=== PATIENT | female | born 1965 | race Two or more races ===

== ENCOUNTER 2023-04-25 16:03 | Emergency (ER) | payer OTHER ==
[~2023-04-25] VITALS: Ht 172.7 cm; Wt 92.7 kg
[2023-04-25 16:15] VITALS: BP 157/93; PULSE 90; RESP 18; TEMP 97.3; O2SAT 95
[2023-04-25] MEDS: TETRACAINE HCL 0.5% OPTH(EYE) SOLN 4ML LEFTEYE ONE (19:00)
[2023-04-25] MEDS: FLUORESCEIN SOD OPTH TEST STRIP LEFTEYE ONE (19:29)
[2023-04-25] MEDS ORDERED: GENT0.3S10 EACHEYE (22:56)
[2023-04-25] MEDS ORDERED: HYDR-4902 PO (22:56)
[2023-04-25] MEDS: ERYTHROMY OPTH OINT 5mg/gm 1gm or 3.5gm tube OP ONE (23:57)
[2023-04-25] MEDS: HYDROcodone-ACET 5/325MG TAB PO ONE (23:57)
[2023-04-25] MEDS: TETANUS-DIPTH-ACEL PERTUSSIS 0.5ML SYR Tdap IM ONE (23:57)
== END 2023-04-26 00:06 | disposition home or self-care (01) ==
LOC: ER 16:03
DX: S05.12XA Contusion of eyeball and orbital tissues, left eye, initial encounter (principal); S05.02XA Injury of conjunctiva and corneal abrasion without foreign body, left eye, initial encounter; I10 Essential (primary) hypertension; Z79.899 Other long term (current) drug therapy; Y04.2XXA Assault by strike against or bumped into by another person, initial encounter; Y93.89 Activity, other specified; Y92.89 Other specified places as the place of occurrence of the external cause; Y99.8 Other external cause status
CPT/HCPCS: 70450; 70486; 90471; 90715

== ENCOUNTER 2024-11-26 11:24 | Inpatient (IN) | payer MEDICAID, OTHER ==
[~2024-11-26] VITALS: Ht 170.2 cm; Wt 94.8 kg
[~2024-11-26 11:24] MED LIST: GENT0.3S10 EACHEYE; HYDR-4902 PO
--- NOTE | 2024-11-26 14:36 | ED.PDOC ---
Musculoskeletal HPI Comments Cindy Kennedy Is a 59-year-old female, with past medical history of pre- diabetes and hypertension. The patient came to the ED with chief complain of 2 months of right leg swelling and pain, intermittent, 5/10, associated with erythema and warmth that was localized around her ankle. Three days ago, the edema and erythema progressed to her knee, associated with subjective fever and chills. Today, her pain increase to 8/10, continues, and the erythema continues expanding, this prompted her visit to the ED. The patient denies any recent trauma on the right leg, discharge, wounds, nausea, vomit or other symptoms. The patient will be admitted for further assessment and management. Chief Complaint: Lower Extremity Time Seen by MD: 12:32 Primary Care Provider: NONE Reviewed Notes: Nurses Notes, Medications, Allergies Allergies: Coded Allergies: NO KNOWN ALLERGIES (Unverified , 04/25/23) Home Meds Active Scripts Hydrocodone-Acetaminophen (Hydrocodone Bitartrate/AC 5-325 mg) 1 Tab Tab, 1 TAB PO Q6HPRN PRN, #10 TAB as needed for pain Prov:KACEY HOFF STATION OPERATOR 04/25/23 Gentamicin Sulfate (Gentamicin Sulfate) 0.3 % Latisha, 2 DROP EACHEYE QID for 10 Days, #15 ML Prov:KACEY HOFF STATION OPERATOR 04/25/23 Information Source: Patient Mode of Arrival: Ambulatory Location: Right Timing: Days Severity: Moderate Able to Move Extremity: Yes Bear Weight: Fully Past Medical History PAST MEDICAL HISTORY: HTN Past Medical History (Other): Pre-Diabetes Surgical History: Hysterectomy, Tonsillectomy SILICA MIXER OPERATOR History: Denies all SILICA MIXER OPERATOR Hx Family History Family History: Reviewed,noncontributory to illness Social History Smoker: Non-Smoker Alcohol: Denies ETOH Use Drugs: Denies Drug Use Lives In: Home Constitutional: reports: chills, fever; denies: diaphoresis, fatigue, malaise, sweats, weakness, others EENTM: denies: blurred vision, double vision, ear bleeding, ear discharge, ear drainage, ear pain, ear ringing, eye pain, eye redness, hearing loss, mouth pain, mouth swelling, nasal discharge, nose bleeding, nose congestion, nose pain, photophobia, tearing, throat pain, throat swelling, voice changes, others Respiratory: denies: cough, hemoptysis, orthopnea, SOB at rest, shortness of breath, SOB with excertion, stridor, wheezing, others Cardiovascular: denies: chest pain, dizzy spells, diaphoresis, Dyspnea on exertion, edema, irregular heart beat, left arm pain, lightheadedness, palpitations, PND, syncope, others Gastrointestinal: denies: abdomen distended, abdominal pain, blood streaked bowels, constipated, diarrhea, dysphagia, difficulty swallowing, hematemesis, m caty, nausea, poor appetite, poor fluid intake, rectal bleeding, rectal pain, vomiting, others Genitourinary: denies: abnormal vagina bleeding, burning, dyspareunia, dysuria, flank pain, frequency, hematuria, incontinence, pain, , vagina discharge, urgency, others Neurological: denies: dizziness, fainting, headache, left sided numbness, left sided weakness, numbness, paresthesia, pre-existing deficit, right sided numbness, right sided weakness, seizure, speech problems, tingling, tremors, weakness, others Musculoskeletal: reports: others (Rigth leg edema); denies: back pain, gout, joint pain, joint swelling, muscle pain, muscle stiffness, neck pain Integumetry: denies: bruises, change in color, change in hair/nails, dryness, laceration, lesions, lumps, rash, wounds, others Allergic/Immunocompromised: denies: Difficulty Healing, Frequent Infections, Hives, Itching, others Hematologic/Lymphatic: denies: anemia, blood clots, easy bleeding, easy bruising, swollen glands, others Endocrine: denies: excessive hunger, excessive sweating, excessive thirst, excessive urination, flushing, intolerance to cold, intolerance to heat, unexplained weight gain, unexplained weight loss, others Psychiatric: denies: anxiety, bipolar disorder, depression, hopeless, panic disorder, schizophrenia, sleepless, suicidal, others Physical Exam Exam Comments Alert, oriented x3 General Appearance: No Apparent Distress, Normal HEENT: Normal ENT Inspection, Pharynx Normal, TMs Normal Neck: Full Range of Motion, Non-Tender, Normal, Normal Inspection Respiratory: Chest Non-Tender, Lungs Clear, No Accessory Muscle Use, No Respiratory Distress, Normal Breath Sounds Cardiovascular: No Edema, No JVD, No Murmur, No Gallop, Normal Peripheral Pulses, Regular Rate/Rhythm Breast Exam: Deferred Gastrointestinal: No Organomegaly, Non Tender, No Pulsatile Mass, Normal Bowel Sounds, Soft Genitalia: Deferred Pelvic: Deferred Rectal: Deferred Extremities: Normal capillary refill, Tender (Right leg: inspection: erytema and swelling from the ankle up to the knee. The leg is warmth to the touch, tenderness to the light touch. ROM full, sensitivity and strength preserved.) Musculoskeletal : Apperance: Normal Neurologic: Alert, tablet repair II-XII nml as Tested, No Motor Deficits, Normal Affect, Normal Mood, No Sensory Deficits Cerebellar Function: Normal Reflexes: Normal Skin: Dry, Normal Color, Warm Lymphatic: No Adenopathy Was a procedure done? Was a procedure done?: No Differential Diagnosis EXT Differential Diagnosis: Cellulitis, Deep Vein Thrombosis Other Differential Diagnosis Necrotizing fasciitis X-Ray, Labs, Meds, VS Vital Signs Date Time Temp Pulse Resp B/P (MAP) Pulse Ox O2 Delivery O2 Flow Rate FiO2 11/26/24 16:03 72 18 98 Room Air 11/26/24 16:03 97.8 76 18 162/84 (110) 97 97.8 11/26/24 11:30 98.1 98 17 157/80 97 98.1 Lab Test 11/26/24 14:44 Range/Units White Blood Count 4.2 L 4.4-10.8 10^3/uL Red Blood Count 4.70 4.0-5.20 10^6/uL Hemoglobin 13.2 12.2-16.2 g/dL Hematocrit 40.1 36.0-46.0 % Mean Corpuscular Volume 85.3 80.0-100.0 fL Mean Corpuscular Hemoglobin 28.2 28.0-32.0 pg Mean Corpuscular Hemoglobin Concent 33.0 32.0-36.0 g/dL Red Cell Distribution Width 13.7 11.8-14.3 % Platelet Count 200 140-450 10^3/uL Mean Platelet Volume 9.2 6.9-10.8 fL Neutrophils (%) (Auto) 53.8 37.0-80.0 % Lymphocytes (%) (Auto) 28.9 10.0-50.0 % Monocytes (%) (Auto) 11.4 0.0-12.0 % Eosinophils (%) (Auto) 5.0 0.0-7.0 % Basophils (%) (Auto) 0.9 0.0-2.0 % Neutrophils # (Auto) 2.3 1.6-8.6 10 ^3/uL Lymphocytes # (Auto) 1.2 0.4-5.4 10 ^3/uL Monocytes # (Auto) 0.5 0-1.3 10 ^3/uL Eosinophils # (Auto) 0.2 0-0.8 10 ^3/uL Basophils # (Auto) 0 0-0.2 10 ^3/uL Nucleated Red Blood Cells 0.3 % Erythrocyte Sedimentation Rate 14 0-20 mm/hr Sodium Level 144 136-145 mmol/L Potassium Level 3.9 3.5-5.1 mmol/L Chloride Level 108 H 98-107 mmol/L Carbon Dioxide Level 26 20-31 mmol/L Anion Gap 10 5-15 Blood Urea Nitrogen 15 9-23 mg/dL Creatinine 0.78 0.550-1.02 mg/dL Glomerular Filtration Rate Calc 88 >90 mL/min BUN/Creatinine Ratio 19.2 10.0-20.0 Serum Glucose 97 74-106 mg/dL Calcium Level 9.1 8.7-10.4 mg/dL C-Reactive Protein High Sensitivity 1.86 H <1.0 mg/dL Current Medications Medications (Trade) Dose Ordered Sig/Gurpreet Route Start Time Stop Time Status Last Admin Ceftriaxone Sodium 50 ml @ 100 mls/hr ONCE ONCE IV 11/26/24 14:15 11/26/24 14:44 DC 11/26/24 16:40 Vancomycin HCl 250 ml @ 250 mls/hr ONCE ONCE IV 11/26/24 14:15 11/26/24 15:14 DC 11/26/24 16:40 Acetaminophen/ Hydrocodone Bitart ([place] 5/325MG Tab) 1 tab ONCE ONCE PO 11/26/24 14:15 11/26/24 14:19 DC 11/26/24 16:39 : 59-year-old female presents here with cellulitis. At this time patient has been seen by myself personally along with the resident. CBC BMP has been ordered which are unremarkable. CRP is elevated. At this time considered possible necrotizing fasciitis. Cellulitis DVT. Ultrasound with no evidence of DVT. At this time however given her extensive cellulitis, hospital ist team has been contacted. Patient has been started on Rocephin and vancomycin. X-Ray, Labs, Meds, VS Comment The patient was reassessed. Pain has improved with pain medication The patient will be admitted for further assessment and management Blood cultures have been requested and antibiotics started. Time of 1ST Reevaluation: 14:40 Reevaluation 1ST: Unchanged Patient Education/Counseling: Diagnosis, Treatment, Prognosis, Need For Follow Up Family Education/Counseling: No Family Present Departure 1 Departure Time of Disposition: 14:40 Impression: Primary Impression: Cellulitis Qualified Codes: L03.119 - Cellulitis of unspecified part of limb Disposition: 09 ADMITTED INPATIENT Admit to: Med Surg Condition: Good Comments Goals of care discussed with the patient > 35 min. Discussed plan of care with Dr. Collins Code status: Full code PCP: Plan discussed with: Patient, the patient agrees with admission the plan. Critical Care Note Critical Care Time?: No Stability Stability form required: No Heart Score Heart Score: Heart Score Response (Comments) Value History N/A 0 EKG N/A 0 Age N/A 0 Risk Factors N/A 0 Troponin N/A 0 Total 0 NELI TREJO RESIDENT Nov 26, 2024 14:36 JENNIFER COLLINS MD Nov 26, 2024 18:01
--- NOTE | 2024-11-26 14:58 | DVH ---
EXAM: CT CT R TIB FIB WO CONTRAST INDICATION: LEG PAIN; CELLULITIS TECHNIQUE: Axial images of right tibia/fibula without contrast have been obtained along with coronal and sagittal reformatted images. All CT scans at this facility use dose modulation, iterative reconst ruction, and/or weight based dosing when appropriate to reduce radiation dose to as low as reasonably achievable. COMPARISON: None FINDINGS: BONES: No CT evidence of an acute fracture or aggressive osseous lesion. No abnormal osseous erosion, lucency, sclerosis to suggest osteomyelitis. MUSCLES: No abnormal attenuation. JOINT SPACES: No joint effusion. TENDONS/LIGAMENTS: Intact. OTHER: Subcutaneous adipose tissue edema of the anterior aspect of the calf without drainable fluid c ollection with the associated skin thickening. Imaging finding may be compatible with cellulitis /fa sciitis. No definitive drainable fluid collection based on CT noncontrast examination. IMPRESSION: 1. Subcutaneous adipose tissue edema of the anterior aspect of the calf without drainable fluid colle ction with the associated skin thickening. 2. Imaging finding may be compatible with cellulitis /fasciitis. 3. No definitive drainable fluid collection based on CT noncontrast examination. 4. No CT evidence of an acute fracture or aggressive osseous lesion. No abnormal osseous erosion, nico ency, sclerosis to suggest osteomyelitis.
[2024-11-26 15:07] LABS: Hematocrit 40.1 % (36.0-46.0); Hemoglobin 13.2 g/dL (12.2-16.2); Mean Corpuscular Hemoglobin 28.2 pg (28.0-32.0); Mean Corpuscular Volume 85.3 fL (80.0-100.0); Nucleated Red Blood Cells % 0.3 %
[2024-11-26 15:13] LABS: Potassium 3.9 mmol/L (3.5-5.1); Sodium 144 mmol/L (136-145)
[2024-11-26 15:14] LABS: Anion Gap 10 (5-15); Calcium 9.1 mg/dL (8.7-10.4); Carbon Dioxide 26 mmol/L (20-31)
--- NOTE | 2024-11-26 15:15 | DVH ---
CLINICAL HISTORY: Leg pain and swelling TECHNIQUE: Color and duplex doppler imagine of the bilateral lower extremity veins was performed. Ves cierra compression and augmentation if possible was also performed. COMPARISON: None FINDINGS: Right Lower Extremity: Right common femoral vein: Normal compressibility and flow. Right superficial femoral vein: Normal compressibility and flow. Right popliteal vein: Normal compressibility and flow. Proximal calf veins demonstrate flow. Left Lower Extremity: Left common femoral vein: Normal compressibility and flow. Left superficial femoral vein: Normal compressibility and flow. Left popliteal vein: Normal compressibility and flow. Proximal calf veins demonstrate flow. IMPRESSION: NO SONOGRAPHIC EVIDENCE FOR DEEP VENOUS THROMBOSIS IN THE BILATERAL LOWER EXTREMITY VEINS.
[2024-11-26 15:19] LABS: Glucose 97 mg/dL (74-106)
[2024-11-26 15:21] LABS: Chloride 108 mmol/L (98-107)
[2024-11-26 15:33] LABS: BUN/Creatinine Ratio 19.2 (10.0-20.0); Blood Urea Nitrogen 15 mg/dL (9-23)
[2024-11-26] MEDS: HYDROcodone-ACET 5/325MG TAB PO ONE (16:39)
[2024-11-26] MEDS: VANCOMYCIN 1GM/250ML KIT 250 ML IV ONE (16:40)
--- NOTE | 2024-11-26 17:36 | DVHHPRES ---
History of Present Illness Resident Creating Document: CARLOS MANUEL JAFFE History of Present Illness Patient is a 59-year-old male with past medical history of pre-diabetes and hypertension, presented to [facility] ED with complaint of right leg swelling and pain. The pain initially began approximately one month ago, localized to the right ankle, described as intermittent, rated 5/10, and associated with erythema and warmth. Over the past three days, the redness progressed proximally to the right knee, accompanied by constant stabbing pain rated 7/10. Patient denies any history of insect bite, trauma, wound, or discharge from the affected area. Initial labs shows elevated blood pressure 1 62/[address] shows subcutaneous adipose tissue edema of the anterior aspect of the calf without drainable fluid collection with the associated skin thickening. Extremity Venous Study shows no sonographic evidence for deep vein thrombosis in the bilateral lower extremity veins. Past Medical History Pre-diabetes, hypertension Past Surgical History: None Family History: None Smoke: No ALCOHOL: none Drugs: None Lives: with Family Review of Systems Musculoskeletal: leg pain, foot pain Skin: Rash Allergies: Coded Allergies: NO KNOWN ALLERGIES (Unverified , 04/25/23) Exam Vital Signs Vital Signs Date Time Temp Pulse Resp B/P (MAP) Pulse Ox O2 Delivery O2 Flow Rate FiO2 11/26/24 16:03 72 18 98 Room Air 11/26/24 16:03 97.8 162/84 (110) 97.8 Exam General Appearance: Cooperative. Well developed. Well nourished. NAD Head Exam: Normal inspection Neck Exam: Normal inspection. Non-tender. Normal alignment Pulmonary/Respiratory: Chest non-tender. Clear bilateral breath sounds, no crackles, no wheezing. Cardiovascular/Chest: Regular rate and rhythm. No murmurs. No JVD. Peripheral Pulses: 2+ Radial (R). 2+ Radial (L). 2+ Pedal (R). 2+ Pedal (L) Abdominal Exam: Normal bowel sounds. Soft. normal abdomen, no visible veins, Nontender. No hepatospenomegaly. No masses Ankle Exam: Negative ankle edema Lower extremities: Normal capillary refill, Right leg: inspection: erythema and swelling from the ankle up to the knee. The leg is warmth to the touch, tenderness to the light touch. ROM full, sensitivity and strength preserved. Neuro/Mental Status: A&O x4. Coherent. Thoughts/Psych: Normal thought pattern. Appropriate mood and affect. Good judgement and insight Skin Exam: Normal inspection. Normal color. Warm. Dry Labs/Xrays Labs Test 11/26/24 14:44 Range/Units White Blood Count 4.2 L 4.4-10.8 10^3/uL Red Blood Count 4.70 4.0-5.20 10^6/uL Hemoglobin 13.2 12.2-16.2 g/dL Hematocrit 40.1 36.0-46.0 % Mean Corpuscular Volume 85.3 80.0-100.0 fL Mean Corpuscular Hemoglobin 28.2 28.0-32.0 pg Mean Corpuscular Hemoglobin Concent 33.0 32.0-36.0 g/dL Red Cell Distribution Width 13.7 11.8-14.3 % Platelet Count 200 140-450 10^3/uL Mean Platelet Volume 9.2 6.9-10.8 fL Neutrophils (%) (Auto) 53.8 37.0-80.0 % Lymphocytes (%) (Auto) 28.9 10.0-50.0 % Monocytes (%) (Auto) 11.4 0.0-12.0 % Eosinophils (%) (Auto) 5.0 0.0-7.0 % Basophils (%) (Auto) 0.9 0.0-2.0 % Neutrophils # (Auto) 2.3 1.6-8.6 10 ^3/uL Lymphocytes # (Auto) 1.2 0.4-5.4 10 ^3/uL Monocytes # (Auto) 0.5 0-1.3 10 ^3/uL Eosinophils # (Auto) 0.2 0-0.8 10 ^3/uL Basophils # (Auto) 0 0-0.2 10 ^3/uL Nucleated Red Blood Cells 0.3 % Erythrocyte Sedimentation Rate 14 0-20 mm/hr Sodium Level 144 136-145 mmol/L Potassium Level 3.9 3.5-5.1 mmol/L Chloride Level 108 H 98-107 mmol/L Carbon Dioxide Level 26 20-31 mmol/L Anion Gap 10 5-15 Blood Urea Nitrogen 15 9-23 mg/dL Creatinine 0.78 0.550-1.02 mg/dL Glomerular Filtration Rate Calc 88 >90 mL/min BUN/Creatinine Ratio 19.2 10.0-20.0 Serum Glucose 97 74-106 mg/dL Calcium Level 9.1 8.7-10.4 mg/dL C-Reactive Protein High Sensitivity 1.86 H <1.0 mg/dL SEPSIS Sepsis Screen Date sepsis recognized/suspect: Nov 26, 2024 Time Sepsis recognized/suspect: 1133 Recent Procedure: No On Antibiotic Therapy: No Respiratory Rate >20: No Heart Rate >90: No Temp<36 C (96.8 F) or >38.3 C: No SBP <90 or MAP <65 mmHG: No New Acute Mental Status Change: No Is the patient on CPAP, BIPAP,: No Physician Orders Bilat Lower Dvt (11/26/24 14:14) Blood Culture (11/26/24 14:14) Urinalysis (11/26/24 14:14) Ct R Tib Fib Wo Contrast (11/26/24 14:21) Vital Signs Date Time Temp Pulse Resp B/P (MAP) Pulse Ox O2 Delivery O2 Flow Rate FiO2 11/26/24 16:03 72 18 98 Room Air 11/26/24 16:03 97.8 76 18 162/84 (110) 97 97.8 11/26/24 11:30 98.1 98 17 157/80 97 98.1 Laboratory Tests Test 11/26/24 14:44 White Blood Count 4.2 10^3/uL (4.4-10.8) L Medications Medications Dose Ordered Sig/Gurpreet Route Start Time Stop Time Status Last Admin Dose Admin Acetaminophen/ Hydrocodone Bitart 1 tab ONCE ONCE PO 11/26/24 14:15 11/26/24 14:19 DC 11/26/24 16:39 1 TAB Ceftriaxone Sodium 50 ml @ 100 mls/hr ONCE ONCE IV 11/26/24 14:15 11/26/24 14:44 DC 11/26/24 16:40 100 MLS/HR Vancomycin HCl 250 ml @ 250 mls/hr ONCE ONCE IV 11/26/24 14:15 11/26/24 15:14 DC 11/26/24 16:40 250 MLS/HR Assessment/Plan Assessment/Plan # Cellulitis - Lower Extremity CT shows subcutaneous adipose tissue edema of the anterior aspect of the calf without drainable fluid collection with the associated skin thickening. Imaging finding may be compatible with cellulitis /fasciitis. - Cefazolin - NS - Vancomycin IV - Tylenol 650 mg PO - [place] - Morphine 2 mg - Zofran # Ruled out DVT - Extremity Venous Study shows no sonographic evidence for deep vein thrombosis in the bilateral lower extremity veins. # Essential Hypertension - Losartan 25 mg Goals of care: Full code, discussed for >30 minutes on 11/26/24 Plan discussed with patient Plan discussed with Dr. Toribio Plan discussed with: Patient Date of Service: Nov 26, 2024 Billing Provider: JR TORIBIO MD Common Visit Codes: [id number] INP/OBS CARE (HIGH) Secondary Visit Codes: [id number] CARE PLAN 30 MINUTES CARLOS MANUEL JAFFE RESIDENT Nov 26, 2024 17:36 JR TORIBIO MD Nov 26, 2024 22:40
[2024-11-26] MEDS ORDERED: ONDANSETRON HCL 4 MG/2 ML VIAL IV PRN (18:00)
[2024-11-26] MEDS ORDERED: MORPHINE SULFATE INJ 2 MG/ml SYRG IV PRN (18:00)
[2024-11-26] MEDS: SODIUM CHLORIDE 0.9% 1,000 ML IV ONE (21:00)
[2024-11-26] MEDS: ceFAZolin 2 GM/D5W50ml 50 ML IV SCH (22:05)
[2024-11-26 23:10] VITALS: BP 140/84; PULSE 70; RESP 17; TEMP 97.6; O2SAT 98
[2024-11-26 23:50] VITALS: BP 140/84; PULSE 70; RESP 17; TEMP 97.6; O2SAT 98
[2024-11-27] VITALS (8 sets, daily range): BP systolic 137–149; BP diastolic 74–97; PULSE 74–85; RESP 16–19; TEMP 97.6–98.2; O2SAT 96–98
[2024-11-27] MEDS: ACETAMINOPHEN 325 MG TAB PO PRN (04:18)
[2024-11-27] MEDS: LOSARTAN POTASSIUM 25 MG TAB PO SCH (09:02)
--- NOTE | 2024-11-27 09:36 | DVHPNRES ---
Progress Note Date Seen: Nov 27, 2024 Resident Creating Document: CARLOS MANUEL JAFFE Medical Necessity Reason Pt with a Central, PICC or Fol: No Subjective Review of Systems Patient is a 59-year-old male with past medical history of pre-diabetes and hypertension, presented to [facility] ED with complaint of right leg swelling and pain. The pain initially began approximately one month ago, localized to the right ankle, described as intermittent, rated 5/10, and associated with erythema and warmth. Over the past three days, the redness progressed proximally to the right knee, accompanied by constant stabbing pain rated 7/10. Patient denies any history of insect bite, trauma, wound, or discharge from the affected area. Initial labs shows elevated blood pressure 162/[address] shows subcutaneous adipose tissue edema of the anterior aspect of the calf without drainable fluid collection with the associated skin thickening. Extremity Venous Study shows no sonographic evidence for deep vein thrombosis in the bilateral lower extremity veins. Patient was seen and examined at bedside. Overnight events were reviewed. The patient reports that swelling has improved compared to yesterday but continues to experience throbbing pain rated 8 out of 10 in severity. Vital signs are stable. Laboratory results show elevated ESR and CRP levels. Past medical history: Pre-diabetes, hypertension Past surgical history: None Home medications: None Past Hospitalization: None Social & Personal history: None Allergies: None Patient seen and examined at bedside. Patient is alert and oriented to time, place person and responding to all questions. Eyes: No Pain, No Vision change, No Conjunctivae inflammation, No Eyelid inflammation, No Other, No Redness ENT: No Ear pain, No Ear discharge, No Nose pain, No Nose discharge, No Nose congestion, No Mouth pain, No Mouth swelling, No Throat pain, No Throat swelling, No Other Cardiovascular: No Chest Pain, No Palpitations, No Orthopnea, No Paroxysmal No Dyspnea, No Edema, No Lt Headedness, No Other Respiratory: No Cough, No Dry, No Shortness of breath, No SOB with exertion, No Wheezing, No Hemoptysis, No Pleuritic Pain, No Sputum, No Other Gastrointestinal: No Nausea, No Vomiting, No Abdominal Pain, No Diarrhea, No Constipation, No Melena, No Hematochezia, No Other Genitourinary: No Dysuria, No Frequency, No Incontinence, No Hematuria, No Retention, No Other Musculoskeletal: No other, No neck pain, No shoulder pain, No arm pain, No back pain, No hand pain, leg pain, foot pain Skin: Rash, No Lesions, No Jaundice, No Bruising, No Other Objective vital signs Vital Sign Date Time Temp Pulse Resp B/P (MAP) Pulse Ox O2 Delivery O2 Flow Rate FiO2 11/27/24 09:02 137/88 11/27/24 09:00 98.1 80 19 96 98.1 11/26/24 23:10 Room Air* 0 21 Total Intake and Output 11/26/24 11/26/24 11/27/24 15:00 23:00 07:00 Intake Total 240 ml Balance 240 ml medications Current Medications Medications Dose Ordered Sig/Gurpreet Route Start Time Stop Time Status Last Admin Dose Admin Cefazolin Sodium/ Dextrose 50 ml @ 50 mls/hr Q8HR IV 11/26/24 22:00 11/27/24 05:19 50 MLS/HR Morphine Sulfate 2 mg Q6HPRN PRN IV 11/26/24 18:00 Ondansetron HCl 4 mg Q6HPRN PRN IV 11/26/24 18:00 Acetaminophen 650 mg Q6HP PRN PO 11/26/24 18:00 11/27/24 04:18 650 MG Losartan Potassium 25 mg DAILY PO 11/27/24 10:00 11/27/24 09:02 25 MG Examination General Appearance: Cooperative. Well developed. Well nourished. NAD Head Exam: Normal inspection Neck Exam: Normal inspection. Non-tender. Normal alignment Pulmonary/Respiratory: Chest non-tender. Clear bilateral breath sounds, no crackles, no wheezing. Cardiovascular/Chest: Regular rate and rhythm. No murmurs. No JVD. Peripheral Pulses: 2+ Radial (R). 2+ Radial (L). 2+ Pedal (R). 2+ Pedal (L) Abdominal Exam: Normal bowel sounds. Soft. normal abdomen, no visible veins, Nontender. No hepatospenomegaly. No masses Ankle Exam: Negative ankle edema Lower extremities: Normal capillary refill, Right leg: inspection: erythema and swelling from the ankle up to the knee. The leg is warmth to the touch, tenderness to the light touch. ROM full, sensitivity and strength preserved. Neuro/Mental Status: A&O x4. Coherent. Thoughts/Psych: Normal thought pattern. Appropriate mood and affect. Good judgement and insight Skin Exam: Normal inspection. Normal color. Warm. Dry laboratory and microbiology Laboratory Tests 11/26/24 14:44 Test 11/26/24 14:44 Range/Units Serum Glucose 97 74-106 mg/dL Labs and/or images reviewed: Labs reviewed by me, Image(s) reviewed by me Problem List/Assessment/Plan Problem List/Assessment/Plan # Cellulitis - Lower Extremity CT shows subcutaneous adipose tissue edema of the anterior aspect of the calf without drainable fluid collection with the associated skin thickening. Imaging finding may be compatible with cellulitis /fasciitis. - Cefazolin - NS - Tylenol 650 mg PO - Dilaudid 0.5 mg IV Q4h PRN - Zofran - Blood Culture NO GROWTH AFTER 24 HOURS OF INCUBATION. # Ruled out DVT - Extremity Venous Study shows no sonographic evidence for deep vein thrombosis in the bilateral lower extremity veins. # Essential Hypertension - Losartan 25 mg Goals of care: Full code, discussed for >30 minutes on 11/27/24 Plan discussed with patient Plan discussed with Dr. Toribio Plan discussed with: Patient, Other (RN) My Orders My Orders Orders - CARLOS MANUEL JAFFE Procedure Category Date Status Time Complete Blood Count LAB 11/27/24 Logged 08:17 Comprehensive LAB 11/27/24 Logged Metabolic Panel 08:17 Date of Service: Nov 27, 2024 Billing Provider: JR TORIBIO MD Common Visit Codes: [id number] INP/OBS CARE(HIGH) CARLOS MANUEL JAFFE RESIDENT Nov 27, 2024 09:36 JR TORIBIO MD Nov 29, 2024 10:55
[2024-11-27 11:45] LABS: Hematocrit 37.0 % (36.0-46.0); Hemoglobin 12.6 g/dL (12.2-16.2); Mean Corpuscular Hemoglobin 28.4 pg (28.0-32.0); Mean Corpuscular Volume 83.7 fL (80.0-100.0); Nucleated Red Blood Cells % 0.1 %
[2024-11-27 12:05] LABS: Alanine Aminotransferase 24 U/L (7-40); Albumin 3.9 g/dL (3.2-4.8); Anion Gap 8 (5-15); BUN/Creatinine Ratio 16.9 (10.0-20.0); Bilirubin, Total 0.5 mg/dL (0.2-1.0); Blood Urea Nitrogen 12 mg/dL (9-23); Calcium 9.0 mg/dL (8.7-10.4); Carbon Dioxide 26 mmol/L (20-31); Glucose 100 mg/dL (74-106); Potassium 4.3 mmol/L (3.5-5.1); Sodium 142 mmol/L (136-145); Total Protein 6.5 g/dL (5.7-8.2)
[2024-11-27 12:06] LABS: Alkaline Phosphatase 121 U/L (46-116); Chloride 108 mmol/L (98-107)
[2024-11-27] MEDS: SODIUM CHLORIDE 0.9% 1,000 ML IV ONE (12:52)
[2024-11-27] MEDS ORDERED: HYDROmorphone HCL 2 MG/ML VL/or syr IV PRN (14:45)
[2024-11-28 01:00] VITALS: BP 140/77; PULSE 68; RESP 18; TEMP 97.8; O2SAT 96
[2024-11-28 05:00] VITALS: BP 155/94; PULSE 78; RESP 18; TEMP 97.4; O2SAT 97
[2024-11-28 06:29] LABS: Hematocrit 36.9 % (36.0-46.0); Hemoglobin 12.4 g/dL (12.2-16.2); Mean Corpuscular Hemoglobin 28.5 pg (28.0-32.0); Mean Corpuscular Volume 84.7 fL (80.0-100.0); Nucleated Red Blood Cells % 0.1 %
[2024-11-28 06:46] LABS: Alanine Aminotransferase 22 U/L (7-40); Albumin 3.8 g/dL (3.2-4.8); Anion Gap 8 (5-15); BUN/Creatinine Ratio 17.6 (10.0-20.0); Bilirubin, Total 0.5 mg/dL (0.2-1.0); Blood Urea Nitrogen 13 mg/dL (9-23); Calcium 8.8 mg/dL (8.7-10.4); Carbon Dioxide 25 mmol/L (20-31); Glucose 95 mg/dL (74-106); Potassium 4.5 mmol/L (3.5-5.1); Sodium 143 mmol/L (136-145); Total Protein 6.4 g/dL (5.7-8.2)
[2024-11-28 06:51] LABS: Alkaline Phosphatase 117 U/L (46-116); Chloride 110 mmol/L (98-107)
[2024-11-28 08:00] VITALS: RESP 19
[2024-11-28 08:45] VITALS: BP 148/87; PULSE 79; RESP 20; TEMP 97.9; O2SAT 94
[2024-11-28 12:40] VITALS: BP 150/94; PULSE 78; RESP 20; TEMP 98.1; O2SAT 93
[2024-11-28] MEDS ORDERED: CEPH250C PO (13:18)
--- NOTE | 2024-11-28 17:03 | DVHDSRES ---
Discharge Summary Date of Admission Resident Creating Document: FITZ GUAJARDO Nov 26, 2024 at 17:46 Date of Discharge: Nov 28, 2024 Labs/Diagnostic Data: Laboratory Results Test 11/28/24 05:52 11/26/24 14:44 White Blood Count 3.8 10^3/uL (4.4-10.8) Red Blood Count 4.36 10^6/uL (4.0-5.20) Hemoglobin 12.4 g/dL (12.2-16.2) Hematocrit 36.9 % (36.0-46.0) Mean Corpuscular Volume 84.7 fL (80.0-100.0) Mean Corpuscular Hemoglobin 28.5 pg (28.0-32.0) Mean Corpuscular Hemoglobin Concent 33.7 g/dL (32.0-36.0) Red Cell Distribution Width 13.8 % (11.8-14.3) Platelet Count 209 10^3/uL (140-450) Mean Platelet Volume 9.0 fL (6.9-10.8) Neutrophils (%) (Auto) 45.6 % (37.0-80.0) Lymphocytes (%) (Auto) 33.1 % (10.0-50.0) Monocytes (%) (Auto) 10.4 % (0.0-12.0) Eosinophils (%) (Auto) 10.0 % (0.0-7.0) Basophils (%) (Auto) 0.9 % (0.0-2.0) Neutrophils # (Auto) 1.8 10 ^3/uL (1.6-8.6) Lymphocytes # (Auto) 1.3 10 ^3/uL (0.4-5.4) Monocytes # (Auto) 0.4 10 ^3/uL (0-1.3) Eosinophils # (Auto) 0.4 10 ^3/uL (0-0.8) Basophils # (Auto) 0 10 ^3/uL (0-0.2) Nucleated Red Blood Cells 0.1 % Sodium Level 143 mmol/L (136-145) Potassium Level 4.5 mmol/L (3.5-5.1) Chloride Level 110 mmol/L (98-107) Carbon Dioxide Level 25 mmol/L (20-31) Anion Gap 8 (5-15) Blood Urea Nitrogen 13 mg/dL (9-23) Creatinine 0.74 mg/dL (0.550-1.02) Glomerular Filtration Rate Calc 94 mL/min (>90) BUN/Creatinine Ratio 17.6 (10.0-20.0) Serum Glucose 95 mg/dL (74-106) Calcium Level 8.8 mg/dL (8.7-10.4) Total Bilirubin 0.5 mg/dL (0.2-1.0) Aspartate Amino Transferase (AST) 25 U/L (13-40) Alanine Aminotransferase (ALT) 22 U/L (7-40) Alkaline Phosphatase 117 U/L (46-116) Total Protein 6.4 g/dL (5.7-8.2) Albumin 3.8 g/dL (3.2-4.8) Erythrocyte Sedimentation Rate 14 mm/hr (0-20) Lactic Acid Level 1.2 mmol/L (0.4-2.0) C-Reactive Protein High Sensitivity 1.86 mg/dL (<1.0) Other Laboratory Tests 11/28/24 05:52 Brief Hx & Hospital Course: Patient is a 59-year-old male with past medical history of pre-diabetes and hypertension, presented to [facility] ED with complaint of right leg swelling and pain. The pain initially began approximately one month ago, localized to the right ankle, described as intermittent, rated 5/10, and associated with erythema and warmth. Over the past three days, the redness progressed proximally to the right knee, accompanied by constant stabbing pain rated 7/10. Patient denies any history of insect bite, trauma, wound, or discharge from the affected area. Initial labs shows elevated blood pressure 162/[address] shows subcutaneous adipose tissue edema of the anterior aspect of the calf without drainable fluid collection with the associated skin thickening. Extremity Venous Study shows no sonographic evidence for deep vein thrombosis in the bilateral lower extremity veins. Patient was seen and examined at bedside. Overnight events were reviewed. The patient reports that swelling has improved compared to yesterday but continues to experience throbbing pain rated 8 out of 10 in severity. Vital signs are stable. Laboratory results show elevated ESR and CRP levels. Past medical history: Pre-diabetes, hypertension Past surgical history: None Home medications: None Past Hospitalization: None Social & Personal history: None Allergies: None Brief hospital course: The patient was diagnosed with right leg cellulitis following CT scan, was treated with IV fluid, IV cefazolin. Symptoms were managed with Tylenol, Dilaudid and Zofran. Blood culture revealed no growth after 24 hours. DVT was excluded by bilateral lower extremity ultrasound. Hypertension was managed with losartan. On the day of discharge, the patient was hemodynamically stable, was tolerating diet. Verbalized understanding of the treatment and discharge plan, was advised to follow up with DC clinic and PCP. The patient was discharged with Keflex. She was advised to continue her antihypertensive and antidiabetic medications. Examination General Appearance: Cooperative. Well developed. Well nourished. NAD Head Exam: Normal inspection Neck Exam: Normal inspection. Non-tender. Normal alignment Pulmonary/Respiratory: Chest non-tender. Clear bilateral breath sounds, no crackles, no wheezing. Cardiovascular/Chest: Regular rate and rhythm. No murmurs. No JVD. Peripheral Pulses: 2+ Radial (R). 2+ Radial (L). 2+ Pedal (R). 2+ Pedal (L) Abdominal Exam: Normal bowel sounds. Soft. normal abdomen, no visible veins, Nontender. No hepatospenomegaly. No masses Ankle Exam: Negative ankle edema Lower extremities: Normal capillary refill, Right leg: inspection: erythema and swelling from the ankle up to the knee, improved from admission. The leg is warm to the touch, tender. Peripheral pulses intact. ROM full, sensitivity and strength preserved. Neuro/Mental Status: A&O x4. Coherent. Thoughts/Psych: Normal thought pattern. Appropriate mood and affect. Good judgement and insight Skin Exam: Normal inspection. Normal color. Warm. Dry Operations or Procedures PATIENT: BRIAN SKAGGS ACCT: [id number] UNIT: [id number] : 1965 LOC: ER ROOM / BED: / AGE / SEX: 59 / F ADM STATUS: REG ER SERVICE [id number] ORDERING PHYSICIAN: NELI TREJO RESIDENT PROCEDURE(s): RTBCT - CT R TIB FIB WO CONTRAST REASON: LEG PAIN; ? CELLULITIS ORDER NUMBER(s): [id number], ACCESSION NUMBER(s): [id number] EXAM: CT CT R TIB FIB WO CONTRAST INDICATION: LEG PAIN; CELLULITIS TECHNIQUE: Axial images of right tibia/fibula without contrast have been obtained along with coronal and sagittal reformatted images. All CT scans at this facility use dose modulation, iterative reconstruction, and/or weight based dosing when appropriate to reduce radiation dose to as low as reasonably achievable. COMPARISON: None FINDINGS: BONES: No CT evidence of an acute fracture or aggressive osseous lesion. No abnormal osseous erosion, lucency, sclerosis to suggest osteomyelitis. MUSCLES: No abnormal attenuation. JOINT SPACES: No joint effusion. TENDONS/LIGAMENTS: Intact. OTHER: Subcutaneous adipose tissue edema of the anterior aspect of the calf without drainable fluid collection with the associated skin thickening. Imaging finding may be compatible with cellulitis /fasciitis. No definitive drainable fluid collection based on CT noncontrast examination. IMPRESSION: 1. Subcutaneous adipose tissue edema of the anterior aspect of the calf without drainable fluid collection with the associated skin thickening. 2. Imaging finding may be compatible with cellulitis /fasciitis. 3. No definitive drainable fluid collection based on CT noncontrast examination. 4. No CT evidence of an acute fracture or aggressive osseous lesion. No abnormal osseous erosion, lucency, sclerosis to suggest osteomyelitis. ATIENT: BRIAN SKAGGS ACCT: [id number] UNIT: [id number] : 1965 LOC: ER ROOM / BED: / AGE / SEX: 59 / F ADM STATUS: REG ER SERVICE 1414 ORDERING PHYSICIAN: NELI TREJO RESIDENT PROCEDURE(s): BLDVT - BiLat Lower DVT REASON: Leg pain and swelling ORDER NUMBER(s): [id number], ACCESSION NUMBER(s): [id number] ADDENDUM REPORT HAS BEEN FINALIZE DICTATED BY: GIFTY AVERY MD DICTATED DATE/TIME: 11/26/24 1512 SIGNED BY: GIFTY AVERY MD SIGNED DATE/TIME: 11/26/24 1542 CC: CLINICAL HISTORY: Leg pain and swelling TECHNIQUE: Color and duplex doppler imagine of the bilateral lower extremity veins was performed. Vessel compression and augmentation if possible was also performed. COMPARISON: None FINDINGS: Right Lower Extremity: Right common femoral vein: Normal compressibility and flow. Right superficial femoral vein: Normal compressibility and flow. Right popliteal vein: Normal compressibility and flow. Proximal calf veins demonstrate flow. Left Lower Extremity: Left common femoral vein: Normal compressibility and flow. Left superficial femoral vein: Normal compressibility and flow. Left popliteal vein: Normal compressibility and flow. Proximal calf veins demonstrate flow. IMPRESSION: NO SONOGRAPHIC EVIDENCE FOR DEEP VENOUS THROMBOSIS IN THE BILATERAL LOWER EXTREMITY VEINS. Condition at Discharge: Stable Final Diagnosis/Problems List # right leg Cellulitis # Ruled out DVT # Essential Hypertension Discharge Disposition: Home Discharge Instruct/Medications Diet: Consistent carbohydrate Activity: No Restrictions, As Tolerated Follow Up/Referral: Follow up with PCP in DC clinic in 1 week Medications: Keflex Scheduled Cephalexin (Keflex Capsule), 500 MG PO BID Gentamicin Sulfate (Gentamicin Sulfate), 2 DROP EACHEYE QID Scheduled PRN Hydrocodone-Acetaminophen (Hydrocodone Bitartrate/AC 5-325 mg), 1 TAB PO Q6HPRN PRN Discharge Statement: "Patient was advised to return to the ER or call 911 if any headaches, dizziness, shortness of breath, chest pain, abdominal pain, bleeding, fevers, or worsening of medical condition. Patient was counseled about treatment plan, medications, possible side effects, patientverbalized understanding. All questions were answered to the best of my ability. This discharge took greater then 30 minutes in planning, reviewing documentation, counseling the patient, and discussing with other team members." ASSESSMENT ASSESSMENT Assessment Cellulitis Date of Service: Nov 28, 2024 Billing Provider: JR BERG MD Common Visit Codes: 37955-TZV/OBS DISCH DAY >30min FITZ GUAJARDO Nov 28, 2024 17:03 JR BERG MD Nov 29, 2024 10:40
== END 2024-11-28 16:25 | disposition home or self-care (01) | DRG 383 ==
LOC: ER 11:24 → OVERFLOW 17:46 → WEST WING 23:08
PROVIDERS: ATTEND Emergency Medicine
DX: L03.115 Cellulitis of right lower limb (principal); I10 Essential (primary) hypertension; R73.03 Prediabetes; Z90.710 Acquired absence of both cervix and uterus; Z79.899 Other long term (current) drug therapy; M72.9 Fibroblastic disorder, unspecified
CPT/HCPCS: 36415; 73700; 80048; 80053; 83605; 85025; 85652; 86141; 87040; 93970; G0378